=== PATIENT | male | born 1970 | race Caucasian/White ===

== ENCOUNTER → 2021-01-23 01:42 | Outpatient (CLI) | payer MEDICARE, SELFPAY ==
[2021-01-23 17:52] LABS: SARS-CoV-2 RNA PCR Negative
== END ==
PROVIDERS: PCP Family Medicine Adolescent Medicine; Visit Provider Family Medicine Adolescent Medicine
DX: R05 Cough (principal); R09.81 Nasal congestion; Z20.822 Contact with and (suspected) exposure to COVID-19
CPT/HCPCS: C9803; U0003; U0005

== ENCOUNTER 2024-03-22 16:46 | Emergency (ER) | payer MEDICARE, SELFPAY ==
[2024-03-22 16:54] VITALS: BP 182/106; PULSE 79; RESP 20; TEMP 37.2; O2SAT 100
--- NOTE | 2024-03-22 17:03 | ED.EYEPROB ---
HPI - Eye Problem General Chief complaint: Eye Problems Stated complaint: Left Eye Injury Time Seen by Provider: 03/22/24 17:06 Source: patient and RN notes reviewed Mode of arrival: ambulatory Limitations: no limitations History of Present Illness HPI Narrative: 54 year old male presents with concern for eye pain. 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 Reports it is painful when he opens his eye. Reports his eye is watering. He denies vision changes. chief complaint: eye pain Related Data Home Medications Medication Instructions Recorded Confirmed aripiprazole 20 mg tablet 20 mg PO 08/17/23 08/17/23 paroxetine HCl 40 mg tablet mg PO 08/17/23 08/17/23 travoprost 0.004 % eye drops drp EACH EYE 08/17/23 08/17/23 Allergies Allergy/AdvReac Type Severity Reaction Status Date / Time No Known Allergies Allergy Verified 01/17/24 07:56 Review of Systems Review of Systems: CONSTITUTIONAL: Denies malaise, chills, sweats, or fever. EYES: Denies visual changes. Reports redness, irritation, discharge. ENT: Denies rhinorrhea, congestion, sinus pain, otalgia or sore throat. SKIN: Denies rash or itching. NEUROLOGIC: Denies numbness, weakness, or headache. PSYCHIATRIC: Denies anxiety or depression. All systems reviewed & are unremarkable except as noted in HPI and below PMFSH Past Medical History Medical History (Updated 03/22/24 @ 17:16 by Karrie Xie NP) History of hepatitis C Treated 2012 Surgical History Surgical History (Updated 08/17/23 @ 06:05 by Livan Gaviria MD) History of shoulder surgery (1986) Right Social History Social History Smoking status: Never smoker Comments At time of signature, agree with nursing past medical, surgical, social and family history. There is no relevant family history pertinent to the presenting complaint Exam Narrative: GENERAL: Well-appearing, well-nourished, and in no acute distress. HEAD: Normocephalic, atraumatic. EYES: PERRLA, sclera clear, and EOMI. No nystagmus. Left sclera injected, corneal abrasion noted upon Wood's lamp exam. See note. Upper and lower eyelid unremarkable, no periorbital edema noted ENT: Nares clear, turbinates pink, no rhinorrhea or epistaxis. Mucous membranes moist. TM pearly jha with sharp light reflex bilaterally; no tragal tenderness. NECK: Supple. CHEST: No respiratory distress. Speaks in full sentences. HEART: Regular rate and rhythm. SKIN: Warm, dry, no visible rash. NEURO: Alert and oriented x3. PSYCH: Normal mood and affect Course Course Emergency Course: Patient is aware of diagnosis, understands and agrees to treatment plan. Anticipatory guidance given. Patient agrees to follow-up as directed and is aware of reasons to seek care at the emergency department. Portions of this record may have been created with voice recognition software Level of Care: Express Care Visit Vital Signs Vital signs: Reviewed. Procedures Other Procedure Procedure 1: Other Procedure: Tetracaine 1 gtt instilled in left eye, fluorescein stain applied. Corneal abrasion noted upon damon lamp exam above the pupil. Eye washed with NS 100 ml. No foreign bodies or Deepti sign noted. MDM - Eye Problem MDM Narrative Medical decision making narrative: Consideration of the following conditions may be warranted for the presenting problem, they are not final diagnoses: Bacterial conjunctivitis, allergic conjunctivitis, viral conjunctivitis, foreign body, blepharitis, chalazion, hordeolum, corneal abrasion, preseptal cellulitis, orbital cellulitis. No evidence of proptosis, ophthalmoplegia, vision loss, pain with eye movement. Exam findings show no acute concerns or changes; patient is non-toxic appearing and is in no distress. Patient is appropriate for outpatient treatment and follow-up. Critical Care Time Critical Care Time Critical Care T
== END 2024-03-22 17:22 | disposition home or self-care (01) ==
PROVIDERS: Emergency Provider Nurse Practitioner; PCP Family Medicine Adolescent Medicine
DX: S05.02XA Injury of conjunctiva and corneal abrasion without foreign body, left eye, initial encounter (principal); W22.8XXA Striking against or struck by other objects, initial encounter; E11.9 Type 2 diabetes mellitus without complications
CPT/HCPCS: 99213; A9270; G0463

== ENCOUNTER 2024-05-08 00:40 | Day surgery (SDC) | payer MEDICARE, SELFPAY ==
[2024-04-23 14:41] VITALS: BMI 34.9
[2024-05-08] MEDS: LACTATED RINGERS 1,000 ML 150 ML IV CONT (10:04)
[2024-05-08 10:06] VITALS: BP 146/91; PULSE 72; RESP 16; TEMP 36.4; O2SAT 100; BMI 33.0
--- NOTE | 2024-05-08 10:21 | PM.IMHP ---
H&P: HPI History of Present Illness Date/Time: 05/08/24 10:21 Chief Complaint: History of colon polyps Narrative: The patient has a history of colonic polyps, the last colonoscopy was 3 years ago Review of Systems Review of Systems: All systems reviewed & are unremarkable except as noted in HPI and below [facility] Past Medical History Medical History (Updated 05/08/24 @ 10:23 by Alex Echeverria MD) History of hepatitis C Treated 2012 Surgical History Surgical History (Updated 08/17/23 @ 06:05 by Livan Gaviria MD) History of shoulder surgery (1986) Right Social History Social History Smoking status: Never smoker Alcohol intake: former Drinks per week: 20 Alcohol use details: stopped drinking 1999 Substance use: former Substance use type: former substance user, marijuana, crack/cocaine, hallucinogens, tranquilizers, IV drugs and methamphetamine Other substance usage details: acid, street drugs, Last use: Living arrangements: with family Spiritual care concerns: No Meds Home Medications and Allergies Home Medications Medication Instructions Recorded Confirmed Type aripiprazole 20 mg tablet 10 mg PO BID 08/17/23 05/08/24 History paroxetine HCl 40 mg tablet 40 mg PO HS 08/17/23 05/08/24 History travoprost 0.004 % eye drops 1 drp EACH EYE HS 08/17/23 05/08/24 History Allergies Allergy/AdvReac Type Severity Reaction Status Date / Time No Known Allergies Allergy Verified 05/08/24 09:55 Vital Signs Vital Signs - 24 hr 05/08/24 10:06 Temperature 97.5 F L Pulse Rate 72 Respiratory Rate 16 Blood Pressure 146/91 H Pulse Oximetry 100 Oxygen Delivery Room Air Exam Const: General: cooperative and healthy appearing Resp: Effort & Inspection: normal respiratory effort and able to speak in complete sentences Auscultation: clear to auscultation bilaterally Cardio: Rate: regular rate Rhythm: regular rhythm GI: Inspection: normal to inspection GI Palp: No No hepatosplenomegaly present Auscultation: normal bowel sounds Rectal Exam: deferred Skin: General skin exam: normal color Psych: Appearance: grossly normal Mental Status: mental status grossly normal Assessment and Plan Assessment and plan (1) History of colonic polyps: Code(s): Z86.0100 - Personal history of colon polyps, unspecified Status: Acute Assessment and Plan: The patient is deemed a good candidate for the procedure. Consent signed. Will proceed.
[2024-05-08] MEDS: SIMETHICONE ORAL SUSPENSION 20 MG/0.3 ML 30 ML BOTTLE 0.6 ML IRRIGATION (10:33)
[2024-05-08 10:41] VITALS: BP 131/89; PULSE 68; RESP 24; O2SAT 98
[2024-05-08 10:51] VITALS: BP 118/79; PULSE 65; RESP 21; O2SAT 98
--- NOTE | 2024-05-08 10:53 | P.PNAN_ITS ---
Anes - Initial Pre Proc Eval Procedure: Operation Date: 05/08/24 11:00 Proposed Procedures p Colonoscopy - Alex Echeverria MD Date/Time: 05/08/24 10:53 Surgeon: Alex Echeverria MD Pre Op Diagnosis: HX of colon polyps Patient Data Age: 54 Gender: M Height: 1.73 m Weight: 98.4 kg Last Vital Signs Temp 97.5 F L 05/08/24 10:06 Pulse 65 05/08/24 10:51 Resp 21 H 05/08/24 10:51 BP 131/89 05/08/24 10:41 Pulse Ox 98 05/08/24 10:51 O2 Del Method Room Air 05/08/24 10:51 Allergies Allergy/AdvReac Type Severity Reaction Status Date / Time No Known Allergies Allergy Verified 05/08/24 09:55 Home Medications Medication Instructions Recorded Confirmed Type aripiprazole 20 mg tablet 10 mg PO BID 08/17/23 05/08/24 History paroxetine HCl 40 mg tablet 40 mg PO HS 08/17/23 05/08/24 History travoprost 0.004 % eye drops 1 drp EACH EYE HS 08/17/23 05/08/24 History Patient hx anesthesia problems: none Family hx anesthesia problems: none Results Review: All pre-operative results and documents have been reviewed as part of the pre- operative evaluation. [facility] Past Medical History Medical History (Updated 05/08/24 @ 10:23 by Alex Echeverria MD) History of hepatitis C Treated 2012 Surgical History Surgical History (Updated 08/17/23 @ 06:05 by Livan Gaviria MD) History of shoulder surgery (1986) Right Social History Social History Smoking status: Never smoker Alcohol intake: former Drinks per week: 20 Alcohol use details: stopped drinking 1999 Substance use: former Substance use type: former substance user, marijuana, crack/cocaine, hallucinogens, tranquilizers, IV drugs and methamphetamine Other substance usage details: acid, street drugs, Last use: Living arrangements: with family Spiritual care concerns: No Anes - Eval Final PreProcedure Day of Procedure 05/08/24 10:53 Patient weight: obese Heart: regular rate and rhythm Lungs: clear to auscultation Airway: Mallampati scale class II Neurological: alert and oriented Last oral intake: >/= 8 hours ASA classification: III Emergent: no Anesthetic plan: proceed Anesthesia type and monitoring: general GIVS and standard monitoring Results Review: All pre-operative results and documents have been reviewed as part of the pre- operative evaluation. Informed Consent: The patient's anesthetic plan and its attendant risks and benefits were discussed with the patient/family/POA. Questions were solicited and answers provided to the satisfaction of the patient/family/POA.
[2024-05-08 11:01] VITALS: BP 124/78; PULSE 62; RESP 18; O2SAT 98
== END 2024-05-08 11:08 | disposition home or self-care (01) ==
PROVIDERS: PCP Family Medicine Adolescent Medicine; Visit Provider Internal Medicine Gastroenterology
PROC: 0DJD8ZZ Inspection of Lower Intestinal Tract, Via Natural or Artificial Opening Endoscopic (ICD-10-PCS; CPT 45378; principal; 2024-05-08 11:00)
DX: Z12.11 Encounter for screening for malignant neoplasm of colon (principal); Z86.0100 Personal history of colon polyps, unspecified; Z86.19 Personal history of other infectious and parasitic diseases; E66.9 Obesity, unspecified; Z68.33 Body mass index [BMI] 33.0-33.9, adult
CPT/HCPCS: G0105; J2704; J7120